=== PATIENT | male | born 1940 | race Caucasian/White ===

== ENCOUNTER 2016-09-28 11:01 | Emergency (ER) | payer MEDICARE, BC ==
[2016-09-28 11:43] VITALS: BP 115/72
--- NOTE | 2016-09-28 12:14 | UC ---
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 Pt states he couldn't sleep last night because of cough. He has not taking anything to alleviate symptoms. He is concern since he had pneumonia last year. Pt states the phlegm is yellowish. Denies SOB, fever, chest pain, N/V/D. Pt also states his started had similar symptoms 1 day before he got them. Pt has not other complains. - History of Current Complaint Chief Complaint: UCRespiratory Stated Complaint: SORE THROAT,ACHY Time Seen by Provider: 09/28/16 11:45 Hx Obtained From: Patient Onset/Duration: Gradual Onset, Lasting Days, Still Present Severity: Mild Pain Intensity: 0 Pain Scale Used: 0-10 Numeric Cough: Productive - mild yellowish phlegm Associated Signs & Symptoms: Positive: Nasal Discharge - clear discharge. Negative: Wheezing, Fever, Vomiting, Rash - Epiglottits Risk Factors Epiglottis Risk Factors: Negative - Allergies/Home Medications Allergies/Adverse Reactions: Allergies Allergy/AdvReac Type Severity Reaction Status Date / Time "one antibiotic" AdvReac Aggrevated Uncoded 09/28/16 11:37 Pemphigus Home Medications: Home Medications Cyclosporine 0.05% OPHTH (NF) [Restasis 0.05% OPHTH] 1 drop BOTH EYES BID [History Confirmed 09/28/16] PMH/Surg Hx/FS Hx/Imm Hx Previously Healthy: Yes Endocrine History: Other - Phemphigus vulgaris Other Endocrine History: Phemphigus vulgaris Other GI/ History: Esophageal strictures - Surgical History Surgical History: Yes Surgery Procedure, Year, and Place: thymus gland removal - Family History Family History: no known cardio-vascular issues in family, Stomach cancer - Social History Occupation: Retired Lives: With Family Alcohol Use: Occasionally Substance Use Type: None Smoking Status (MU): Former Smoker Type: Cigarettes Amount Used/How Often: 1 PPD Length of Time of Smoking/Using Tobacco: 30+ Years Have You Smoked in the Last Year: No When Did the Patient Quit Smoking/Using Tobacco: 1983 Review of Systems Constitutional: Negative Skin: Negative Eyes: Negative ENT: Sore Throat - mild w/ postnasal drip, Nasal Discharge - clear nasal discharge, Sinus Congestion Respiratory: Negative Cardiovascular: Negative Gastrointestinal: Negative Genitourinary: Negative Motor: Negative Neurovascular: Negative Musculoskeletal: Negative Neurological: Negative Psychological: Negative All Other Systems Reviewed And Are Negative: Yes Physical Exam Triage Information Reviewed: Yes Appearance: Well-Appearing, No Pain Distress, Well-Nourished, Obese Vital Signs: Initial Vital Signs Temp 99.1 F 09/28/16 11:39 Pulse 64 09/28/16 11:39 Resp 18 09/28/16 11:39 BP 115/72 09/28/16 11:39 Pulse Ox 97 09/28/16 11:39 Vital Signs Reviewed: Yes Eyes: Positive: Conjunctiva Clear - PERRLA, EOMI, fundi grossly normal ENT: Positive: Normal ENT inspection, Hearing grossly normal, Pharynx normal, Nasal congestion - clear nasal discharge, Nasal drainage, TMs normal. Negative : Tonsillar swelling, Tonsillar exudate Dental Exam: Normal Neck exam: Normal Neck: Positive: Supple, Nontender, No Lymphadenopathy Respiratory Exam: Normal Respiratory: Positive: Chest non-tender, Lungs clear, Normal breath sounds Cardiovascular Exam: Normal Cardiovascular: Positive: RRR, No Murmur, Pulses Normal, Brisk Capillary Refill Abdominal Exam: Normal Abdomen Description: Positive: Nontender, No Organomegaly, Soft. 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 Pt states he couldn't sleep last night because of cough. He has not taking anything to alleviate symptoms. He is concern since he had pneumonia last year. Pt states the phlegm is yellowish. Denies SOB, fever, chest pain, N/V/D. Pt also states his started had similar symptoms 1 day before he got them. Hx obtained. ENT: Sore Throat - mild w/ postnasal drip, Nasal Discharge - clear nasal discharge, Sinus Congestion. Lungs are clear B/L. O2sat: 97. Most likely and upper respiratory infection. Pt advised to start using his Albuterol inhaler at home to alleviate broncospasm. Increase fluid and rest. Rx Tessalon tabs PO for cough and Flonase to alleviate congestion. If symptoms do not improve or worsen to return to urgent care or f/u with his PCP in 1 week. Pt undersood and agreed.Left clinic ambulating - Differential Dx/Diagnosis Differential Diagnosis/HQI/PQRI: Laryngitis, Pharyngitis, Sinusitis, Tonsillitis , URI Provider Diagnoses: Upper respiratory infection Discharge - Discharge Plan Condition: Stable Disposition: HOME Prescriptions: Benzonatate CAP* [Tessalon 100 MG CAP*] 100 mg PO TID #15 cap Fluticasone NASAL SPRAY 50MCG* [Flonase NASAL SPRAY 50MCG*] 2 spray BOTH NARES DAILY #1 btl Patient Education Materials: Upper Respiratory Infection (ED) Referrals: Reanna Kline MD [Primary Care Provider] - 1 Week Additional Instructions: Please take medications as instructed , start using your albuterol inhaler q4- 6hrs to alleviate symptoms of cough, Increase fluid intake, rest. . If you do not improve or if symptoms worsen and develops fever or shortness of breath please go to the ED or return to the urgent care or F/u with PCP for further evaluation and treatment.
== END 2016-09-28 12:39 | disposition home or self-care (01) ==
LOC: UCCORT 11:01
DX: J06.9 Acute upper respiratory infection, unspecified (principal); L10.0 Pemphigus vulgaris; K22.2 Esophageal obstruction; E66.9 Obesity, unspecified; Z87.891 Personal history of nicotine dependence
CPT/HCPCS: 99212; G0463

== ENCOUNTER 2018-05-19 18:28 | Emergency (ER) | payer MEDICARE, BC ==
[2018-05-19 19:56] VITALS: BP 134/84
[2018-05-19] MEDS ORDERED: Albuterol 2.5 MG/3 ML NEB.SOL* (0.083%) INH ONE (20:10)
[2018-05-19] MEDS ORDERED: predniSONE TAB* 20 MG PO ONE (20:11)
--- NOTE | 2018-05-19 20:12 | UC ---
UC General HPI - HPI Summary HPI Summary: 2 DAY HX WORSENING COUGH, CONGESTION AND WHEEZING. HX ASTHMA. WANTS TO ENSURE NOT ANOTHER PNEUMONIA. NO FEVR OR CP. - History of Current Complaint Chief Complaint: UCRespiratory Stated Complaint: COUGH,CONGESTION Time Seen by Provider: 05/19/18 20:04 Hx Obtained From: Patient Onset/Duration: Gradual Onset Timing: Constant Pain Intensity: 0 Associated Signs & Symptoms: Positive: Cough, Wheezing. Negative: Chest Pain - Allergy/Home Medications Allergies/Adverse Reactions: Allergies Allergy/AdvReac Type Severity Reaction Status Date / Time "one antibiotic" AdvReac Aggrevated Uncoded 05/19/18 19:52 Pemphigus Home Medications: Home Medications Loteprednol 0.5% OPH.SUSP(NF) [Lotemax 0.5% OPH.SUSP (NF)] 1 drop BOTH EYES DAILY 05/19/18 [History Confirmed 05/19/18] Tetracycline HCl [Tetracycline Hydrochlorid] 250 mg PO DAILY 05/19/18 [History Confirmed 05/19/18] predniSONE [Prednisone 5 MG TAB] 5 mg PO DAILY 05/19/18 [History Confirmed 05/19] PMH/Surg Hx/FS Hx/Imm Hx - Additional Past Medical History Additional PMH: PEMPHIGUS Respiratory History: Asthma GI/ History: Gastroesophageal Reflux - Surgical History Surgical History: Yes Surgery Procedure, Year, and Place: thymus gland removal, hernia repair - Family History Known Family History: Positive: None Family History: no known cardio-vascular issues in family, Stomach cancer - Social History Lives: With Family Alcohol Use: Rare Substance Use Type: None Smoking Status (MU): Former Smoker Type: Cigarettes Amount Used/How Often: 1 PPD Length of Time of Smoking/Using Tobacco: 30+ Years Have You Smoked in the Last Year: No When Did the Patient Quit Smoking/Using Tobacco: 1983 Review of Systems All Other Systems Reviewed And Are Negative: Yes Constitutional: Negative: Fever, Chills Skin: Positive: Rash - PEMPHIGUS Respiratory: Positive: Shortness Of Breath, Cough Cardiovascular: Negative: Palpitations, Chest Pain Musculoskeletal: Negative: Edema Physical Exam Triage Information Reviewed: Yes Appearance: Well-Appearing Vital Signs: Initial Vital Signs Temp 98.5 F 05/19/18 19:51 Pulse 91 05/19/18 19:51 Resp 18 05/19/18 19:51 BP 134/84 05/19/18 19:51 Pulse Ox 98 05/19/18 19:51 Vital Signs Reviewed: Yes Eyes: Positive: Conjunctiva Clear ENT: Positive: Pharynx normal, TMs normal. Negative: Nasal congestion Neck: Positive: Supple, Nontender, No Lymphadenopathy Respiratory: Positive: Lungs clear, No respiratory distress, Decreased breath sounds - SLIGHT, Other: - BRONCHOSPASTIC COUGH Cardiovascular: Positive: RRR, No Murmur Abdomen Description: Positive: Nontender, No Organomegaly, Soft Bowel Sounds: Positive: Present Musculoskeletal: Positive: ROM Intact Neurological: Positive: Alert Psychological: Positive: Age Appropriate Behavior Skin Exam: Normal, Other - WARM AND DRY Diagnostics - Radiology No standard instances Radiology Interpretation Completed By: ED Physician - WET READ=NAD Re-Evaluation - Re-Evaluation First Eval Re-Evaluation Time: 20:54 Change: Improved - PT NOTES COUGH RESOLVED AND EASIER TO TAKE A DEEP BREATH. AERATION IMPROVED WELL. Course/Dx - Course Course Of Treatment: CXR REVIEWED WITH DR ARREOLA WHO WAS ABLE TO LOOK AT AN OLD FILM. WE AGREE ON NAD. WET READ OF CXR D/W PT/. - Diagnoses Provider Diagnosis: Asthma attack Discharge - Sign-Out/Discharge Documenting (check all that apply): Patient Departure All imaging exams completed and their final reports reviewed: No - Discharge Plan Condition: Stable Disposition: HOME Prescriptions: predniSONE [Prednisone 20 MG TAB] 40 mg PO DAILY 4 Days #8 tablet Patient Education Materials: Asthma (ED) Referrals: Reanna Kline MD [Primary Care Provider] - 6 Days Additional Instructions: USE YOUR RESCUE INHALER EVERY 6 HOURS. HOLD THE 5MG TABLETS OF PREDNISONE WHILE ON THE HIGHER DOSE. - Billing Disposition and Condition Condition: STABLE Disposition: Home - Attestation Statements Provider Attestation: Per institutional requirements, I have reviewed the chart, however, I was not consulted specifically or made aware of this patient by the midlevel provider. I did not personally evaluate, interact with , or disposition this patient.
--- NOTE | 2018-05-20 14:34 | UC ---
- Progress Note Progress Note: PLS CALL PT. RADIOLOGY REPORT REVIEWED. FINDINGS CONSISTENT WITH COPD, NO EVIDENCE FOR ACUTE FINDING. SHOULD F/U WITH PCP RE: COPD EVALUATION AND MGMT. Course/Dx - Diagnoses Provider Diagnoses: Asthma attack Discharge - Sign-Out/Discharge Documenting (check all that apply): Post-Discharge Follow Up All imaging exams completed and their final reports reviewed: Yes - Discharge Plan Condition: Stable Disposition: HOME Prescriptions: predniSONE [Prednisone 20 MG TAB] 40 mg PO DAILY 4 Days #8 tablet Patient Education Materials: Asthma (ED) Referrals: Reanna Kline MD [Primary Care Provider] - 6 Days Additional Instructions: USE YOUR RESCUE INHALER EVERY 6 HOURS. HOLD THE 5MG TABLETS OF PREDNISONE WHILE ON THE HIGHER DOSE. - Billing Disposition and Condition Condition: STABLE Disposition: Home
== END 2018-05-19 21:01 | disposition home or self-care (01) ==
LOC: UCCORT 18:28
DX: J45.909 Unspecified asthma, uncomplicated (principal); Z88.1 Allergy status to other antibiotic agents; Z87.891 Personal history of nicotine dependence
CPT/HCPCS: 71046; 99212; G0463; J7512

== ENCOUNTER 2019-05-29 12:56 | Emergency (ER) | payer MEDICARE, BC ==
--- OUTSIDE RECORDS SUMMARY | 2019-05-29 14:36 | XMS REPORT | Continuity of Care Document ---
:1940 External Reference #:[id number] Author Name Raul Jerome MD (transmitted by agent of provider Brit Jean-Baptiste) Address [address] [place] [address] Care Team Providers Name Role Phone Reanna Kline MD - Family Care Team Information Housekeeping Manager [phone] Medicine Problems Active Problems Provider Date Preoperative cardiovascular Leonardo Lopez M.D., Onset: 03/24/2015 examination FACC Syncope and collapse Leonardo Lopez M.D., Onset: 05/09/2014 [facility] Social History Type Date Description Comments Sex Unknown Tobacco Use Start: Unknown End: Quit Unknown Cigarette Use Pack Years - 19 Smoking Status Reviewed: 05/24/19 Quit Smokeless Tobacco Never Used Smokeless Tobacco ETOH Use Occasionally consumes alcohol Tobacco Use Start: 03/17/59 End: Patient is a former smoker 1 PPD 03/17/86 Recreational Drug Use Denies Drug Use Allergies, Adverse Reactions, Alerts Active Allergies Reaction Severity Comments Date Rocephin 04/11/2016 Inactive Allergies NKDA 05/02/2014 Medications Active Medications SIG Qnty Indications Ordering Provider Date Methotrexate 3 tablets [facility], 07/21/2018 2.5mg weekly.( per pt Antonio Bailey M.D. Tablets only on Friday.) Ventolin HFA as needed Unknown 108(90Base) mcg/Act Aerosol Vitamin D 1 by mouth every Unknown 2000Unit day Capsules Multi-Vitamin 1 by mouth every Unknown Tablets day Montelukast Sodium 1 by mouth every Unknown 10mg day Tablets Restasis 1 drop both eyes Unknown 0.05% Emulsion twice daily. Doxycycline Hyclate 1 tab by mouth Unknown twice a day 100mg Tablets Flovent HFA 1 puffs twice a Unknown 110mcg/Act day Aerosol Folic Acid 1 tabl by mouth Unknown 1mg Tablets every day Pantoprazole Sodium 1 by mouth every Unknown day 40mg Tablets DR Garcia Description No Information Available Vital Signs Date Vital Result Comment 05/24/2019 9:45am BP Systolic Sitting Left Arm 152 mmHg BP Diastolic Sitting Left Arm 68 mmHg Heart Rate 73 /min Respiratory Rate 18 /min Height 65 inches 5'5" Weight 173.00 lb BMI (Body Mass Index) 28.8 kg/m2 BSA (Body Surface Area) 1.86 m2 [place] body weight in kilograms 62 kg O2 % BldC Oximetry 99 % Ejection Fraction 60% 03/23/2019 3:44pm BP Systolic 166 mmHg BP Diastolic 92 mmHg Body Temperature 97.2 F Heart Rate 69 /min Height 65 inches 5'5" Weight 175.00 lb BMI (Body Mass Index) 29.1 kg/m2 BSA (Body Surface Area) 1.87 m2 [place] body weight in kilograms 62 kg O2 % BldC Oximetry 97 % Results Description No Information Available Procedures Date Code Description Status 03/23/2019 67340 Debridement Nails Any Method 6 Or More Completed 03/23/2019 26345 Pare Hyperkeratotic Lesion, Single Completed 12/16/2018 57378 Debridement Nails Any Method 6 Or More Completed 12/16/2018 42266 Pare Hyperkeratotic Lesion, Single Completed 12/03/2005 36611775 Colonoscopy Completed Medical Devices Description No Information Available Encounters Description No Information Available Assessments Date Code Description Provider 03/23/2019 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 Navdeep Jensen DPM of extremities, bilateral legs 03/23/2019 B35.1 Tinea unguium Navdeep Jensen DPM 03/23/2019 L84 Corns and callosities Navdeep Jensen DPM 03/23/2019 M20.12 Hallux valgus (acquired), left foot Navdeep Jensen DPM 03/23/2019 M20.11 Hallux valgus (acquired), right foot Navdeep Jensen DPM 03/23/2019 M20.41 Other hammer toe(s) (acquired), right foot Navdeep Jensen DPM 12/16/2018 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 Navdeep Jensen DPM of extremities, bilateral legs 12/16/2018 B35.1 Tinea unguium Navdeep Jensen DPM 12/16/2018 L84 Corns and callosities Navdeep Jensen DPM 12/16/2018 M20.12 Hallux valgus (acquired), left foot Navdeep Jensen DPM 12/16/2018 M20.11 Hallux valgus (acquired), right foot Navdeep Jensen DPM 12/16/2018 M20.41 Other hammer toe(s) (acquired), right foot Navdeep Jensen DPM Plan of Treatment Future Appointment(s):12/06/2019 9:40 am - Raul Jerome MD at Cardiology Ucusee0206/30/2019 4:00 pm - Navdeep Jensen DPM at Podiatry Office Functional Status Functional Condition Comment Date Status Glasses Active Independent with all ADL's Active Mental Status Description No Information Available Referrals Description No Information Available
--- OUTSIDE RECORDS SUMMARY | 2019-05-29 14:36 | XMS REPORT | Continuity of Care Document ---
:1940 External Reference #:[id number] Author Name Raul Jerome MD (transmitted by agent of provider Roxann Mcnamara) Address [address] [place] [address] Care Team Providers Name Role Phone Reanna Kline MD - Family Care Team Information Brush Loader And Handle Attacher [phone] Medicine Problems Active Problems Provider Date Preoperative cardiovascular Leonardo Lopez M.D., Onset: 03/24/2015 examination FACC Syncope and collapse Leonardo Lopez M.D., Onset: 05/09/2014 [facility] Social History Type Date Description Comments [...] Indications Ordering Provider Date Methotrexate 3 tablets [facility], 07/21/2018 2.5mg weekly.( per pt Antonio Bailey [...] kg/m2 BSA (Body Surface Area) 1.86 m2 [place] body weight in kilograms 62 kg O2 % BldC Oximetry 99 % Ejection Fraction 60% 03/23/2019 3:44pm BP Systolic 166 mmHg BP Diastolic 92 mmHg Body Temperature 97.2 F Heart Rate 69 /min Height 65 inches 5'5" Weight 175.00 lb BMI (Body Mass Index) 29.1 kg/m2 BSA (Body Surface Area) 1.87 m2 [place] body weight in kilograms 62 kg O2 % BldC Oximetry 97 % Results Description No Information Available Procedures Date Code Description Status 05/24/2019 28947 EKG-Tracing And Report Completed 03/23/2019 69637 Debridement Nails Any Method 6 Or More Completed 03/23/2019 42589 Pare Hyperkeratotic Lesion, Single Completed 12/16/2018 52422 Debridement Nails Any Method 6 Or More Completed 12/16/2018 17088 Pare Hyperkeratotic Lesion, Single Completed 12/03/2005 [id number] Colonoscopy Completed Medical Devices Description No Information Available Encounters Type Date Location Provider Dx Diagnosis Office Visit 05/24/2019 Cardiology Office Raul Jerome, I95.1 Orthostatic 9:40a hypotension R00.1 Bradycardia, unspecified I49.3 Ventricular premature depolarization R01.1 Cardiac murmur, unspecified Assessments Date Code Description Provider 05/24/2019 I95.1 Orthostatic hypotension Raul Jerome MD 05/24/2019 R00.1 Bradycardia, unspecified Raul Jerome MD 05/24/2019 I49.3 Ventricular premature depolarization Raul Jerome MD 05/24/2019 R01.1 Cardiac murmur, unspecified Raul Jerome MD 03/23/2019 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 Navdeep Jensen DPM of extremities, bilateral legs 03/23/2019 B35.1 Tinea willy Navdeep Jensen, DPSun 03/23/2019 L84 Corns and callosities Navdeep Jensen, SOMMER 03/23/2019 M20.12 Hallux valgus (acquired), left foot Navdeep Jensen DPM 03/23/2019 M20.11 Hallux valgus (acquired), right foot Navdeep Jensen, ROROM 03/23/2019 M20.41 Other hammer toe(s) (acquired), right foot Navdeep Jensen DPM 12/16/2018 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 Navdeep Jensen DPM of extremities, bilateral legs 12/16/2018 B35.1 Tinea willy Navdeep Jensen, ROROM 12/16/2018 L84 Corns and callosities Navdeep Jensen, SOMMER 12/16/2018 M20.12 Hallux valgus (acquired), left foot Navdeep Jensen DPM 12/16/2018 M20.11 Hallux valgus (acquired), right foot Navdeep Jensen DPM 12/16/2018 M20.41 Other hammer toe(s) (acquired), right foot Navdeep Jensen DPM Plan of Treatment Future Appointment(s):12/06/2019 9:40 am - Raul Jerome MD at Cardiology Tezexl8906/30/2019 4:00 pm - Navdeep Jensen DPM at Podiatry Mfaevr5205/24/2019 - Raul Jerome MDI95.1 Orthostatic fkxdzsmazeiM89.1 Bradycardia, lwdzmzydmqqP06.3 Ventricular premature [id number] Cardiac murmur, unspecifiedNew Orders:Echocardiogram, Ordered: 05/24/19 Functional Status Functional Condition Comment Date Status Glasses Active Independent with all ADL's Active Mental Status Description No Information Available Referrals Description No Information Available
[2019-05-29 14:49] VITALS: BP 145/81
--- NOTE | 2019-05-29 15:08 | UC ---
Respiratory Complaint HPI - HPI Summary HPI Summary: Coughing returned yesterday from a cough that originally started 05/19 lasted through 05/22. Pt improved after 05/22 then relapsed with worsening cough with yellow mucus yesterday flu shot: did not get get - History of Current Complaint Chief Complaint: UCRespiratory Stated Complaint: COUGH,CHEST CONGESTION Time Seen by Provider: 05/29/19 14:57 Pain Intensity: 0 - Allergies/Home Medications Allergies/Adverse Reactions: Allergies Allergy/AdvReac Type Severity Reaction Status Date / Time ceftriaxone AdvReac Aggravated Verified 05/29/19 15:06 pemphigus (spotty rash) Home Medications: Home Medications Cholecalciferol TAB* [Vitamin D TAB*] 2,000 unit PO QAM 07/03/13 [History Confirmed 05/29/19] Multivitamin [Multivitamins] 1 cap PO QAM 07/03/13 [History Confirmed 05/29/19] Pantoprazole TAB * [Protonix TAB*] 40 mg PO QAM 07/03/13 [History Confirmed ] Fluticasone NASAL SPRAY 50MCG* [Flonase NASAL SPRAY 50MCG*] 2 spray BOTH NARES DAILY #1 btl 09/28/16 [Rx Confirmed 05/29/19] Tetracycline HCl [Tetracycline Hydrochlorid] 250 mg PO DAILY 05/19/18 [History Confirmed 05/29/19] Azithromycin TAB* [Zithromax TAB (Z-ANNA) 250 mg #6 tabs] 2 tab PO .TODAY, THEN 1 DAILY #1 anna 05/29/19 [Rx] Benzonatate CAP* [Tessalon 100 MG CAP*] 100 mg PO BID 7 Days #14 cap 05/29/19 [ Rx] GuaiFENesin DM 100 mg/10 mg [Robitussin DM 100 mg/10 mg in 5 ml] 5 ml PO Q12H PRN 05/29/19 [History Confirmed 05/29/19] Rx Lubricating Eye Solution 1 drop BOTH EYES BID 05/29/19 [History Confirmed ] PMH/Surg Hx/FS Hx/Imm Hx - Surgical History Surgical History: Yes Surgery Procedure, Year, and Place: thymus gland removal, hernia repair; esophagus stretched 02/2019 - Family History Known Family History: Positive: None Family History: no known cardio-vascular issues in family, Stomach cancer - Social History Alcohol Use: Occasionally Substance Use Type: None Smoking Status (MU): Former Smoker Type: Cigarettes Amount Used/How Often: 1 PPD Length of Time of Smoking/Using Tobacco: 30+ Years Have You Smoked in the Last Year: No When Did the Patient Quit Smoking/Using Tobacco: 1983 Physical Exam Vital Signs: Initial Vital Signs Temp 98.2 F 05/29/19 14:38 Pulse 68 05/29/19 14:38 Resp 24 05/29/19 14:38 BP 145/81 05/29/19 14:38 Pulse Ox 98 05/29/19 14:38 Respiratory Course/Dx - Course Course Of Treatment: rapid flu neg Discharge ED - Sign-Out/Discharge Documenting (check all that apply): Patient Departure All imaging exams completed and their final reports reviewed: No Studies - Discharge Plan Condition: Good Disposition: HOME Prescriptions: Azithromycin TAB* [Zithromax TAB (Z-ANNA) 250 mg #6 tabs] 2 tab PO .TODAY, THEN 1 DAILY #1 anna Benzonatate CAP* [Tessalon 100 MG CAP*] 100 mg PO BID 7 Days #14 cap Referrals: Reanna Kline MD [Primary Care Provider] - Additional Instructions: If you develop breathing problems please go to emergency room. - Billing Disposition and Condition Condition: GOOD Disposition: Home
[2019-05-29 15:32] LABS: Influenza A Molecular Negative (Negative); Influenza B Molecular Negative (Negative)
== END 2019-05-29 15:47 | disposition home or self-care (01) ==
LOC: UCCORT 12:56
DX: R05 Cough (principal); Z87.891 Personal history of nicotine dependence; Z88.1 Allergy status to other antibiotic agents
CPT/HCPCS: 99212; G0463